=== PATIENT | male | born 1990 | race Hispanic/Latino ===

== ENCOUNTER 2017-02-17 18:57 | Emergency (ER) | payer OTHER ==
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
[2017-02-17] MEDS ORDERED: TORADOL IM ONE (23:26)
[2017-02-17 23:42] VITALS: BP 111/68
== END 2017-02-17 23:44 | disposition home or self-care (01) ==
LOC: ED 18:57
DX: S13.9XXA Sprain of joints and ligaments of unspecified parts of neck, initial encounter (principal); V49.49XA Driver injured in collision with other motor vehicles in traffic accident, initial encounter; Y93.89 Activity, other specified; Y92.89 Other specified places as the place of occurrence of the external cause; Y99.8 Other external cause status
CPT/HCPCS: 96372; 99283; J1885